=== PATIENT | male | born 1935 | race Caucasian/White ===

== ENCOUNTER 2017-02-08 22:39 | Emergency (ER) | payer MEDICARE, OTHER ==
[~2017-02-08] VITALS: Ht 180.3 cm; Wt 59.0 kg
[~2017-02-08 22:39] MED LIST: ASPI-146 PO; BUME1TAB PO; CARV3.12 PO; IPRASOL INH; LEVA500T PO; OXYC1TAB63 PO; PRED10 PO; SPIRCAP INH; VENTAER INH
[2017-02-08 22:50] VITALS: BP 126/72; PULSE 77; RESP 16; TEMP 97.8; O2SAT 97
[2017-02-08] MEDS ORDERED: FURO20TA PO (23:01)
[2017-02-08 23:25] LABS: BASOPHIL # 0.1 TH/MM3 (0-0.2); BASOPHIL % 0.7 % (0.0-2.0); EOSINOPHIL # 0.3 TH/MM3 (0-0.4); EOSINOPHIL % 3.6 % (0.0-4.0); HEMATOCRIT 40.3 % (39.0-51.0); HEMO FLAGS DIFF FINAL; LYMPH % 15.1 % (9.0-44.0); LYMPHOCYTE # 1.2 TH/MM3 (1.0-4.8); MEAN CELL VOLUME 85.9 FL (80.0-100.0); MEAN CORPUSCULAR HEMOGLOBIN 29.1 PG (27.0-34.0); MEAN CORPUSCULAR HGB CONC 33.8 % (32.0-36.0); MONO % 7.5 % (0.0-8.0); NEUT % 73.1 % (16.0-70.0); PLATELET COUNT 117 TH/MM3 (150-450); RED BLOOD COUNT 4.69 MIL/MM3 (4.50-5.90); RED CELL DISTRIBUTION WIDTH 15.5 % (11.6-17.2); WHITE BLOOD COUNT 8.2 TH/MM3 (4.0-11.0)
[2017-02-08 23:44] LABS: INTERNATIONAL NORMALIZED RATIO 1.1 RATIO; PROTHROMBIN TIME - PATIENT 11.8 SEC (9.8-11.6)
--- NOTE | 2017-02-08 23:56 | PD ---
HPI Chief Complaint: Bleeding Time Seen by Provider: 22:46 Travel History International Travel<30 days: No Contact w/Intl Traveler<30days: No Traveled to known affect area: No History of Present Illness HPI The patient is an 81 year old male who presents to the [facility] emergency department with a history of bleeding from the right scrotum that began prior to arrival after he took a hot bath. The patient reports that he was toweling off after a hot bath when he suddenly noticed that there was an area of bleeding from the right scrotum. He reports that he tried to hold pressure and stop the bleeding, however it would not stop. He reports that he is on a 325 mg aspirin daily. He denies taking any other blood thinners. The patient denies any injury to the area. He denies having any lightheaded sensation, chest pain, chest pressure, shortness of breath, or weakness associated with this. The bleeding stopped prior to arrival. The patient has a Band-Aid in place. On review of systems, the patient otherwise denies any recent fevers cough, congestion, neck pain, chest pain, worsening shortness of breath (he has a baseline level of shortness of breath related to COPD), abdominal pain, vomiting, diarrhea, urinary symptoms, or neurologic symptoms. 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 Atrial Fibrillation: Yes Heart Rhythm Problems: Yes Cardiovascular Problems: Yes Congestive Heart Failure: Yes COPD: Yes Coronary Artery Disease: Yes Diminished Hearing: No Respiratory: Yes Past Surgical History Narrative Surgical The patient's past surgical history is significant for an AICD placement, cardiac catheterization with 5-6 stents placed previously. Cardiac Surgery: Yes (PACEMAKER/ AICD) Social History Alcohol Use: No Tobacco Use: Yes (one pack per day) Substance Use: No Allergies-Medications (Allergen,Severity, Reaction): Coded Allergies: clopidogrel (Unverified Allergy, Severe, Rash, 12/21/16) Reported Meds & Prescriptions Reported Meds & Active Scripts Active Reported Furosemide 20 Mg Tab 20 Mg PO DAILY Ecotrin Regular Strength (Aspirin) 325 Mg Tabdr 325 Mg PO DAILY Review of Systems Except as stated in HPI: all other systems reviewed are Neg General / Constitutional: No: Fever Eyes: No: Visual changes HENT: No: Headaches Cardiovascular: No: Chest Pain or Discomfort Respiratory: No: Shortness of Breath Gastrointestinal: No: Abdominal Pain Genitourinary: No: Dysuria Musculoskeletal: No: Pain Skin: No Rash Neurologic: No: Weakness Psychiatric: No: Depression Endocrine: No: Polydipsia Hematologic/Lymphatic: Positive: Other (bleeding from a wound on the scrotum), No: Easy Bruising Physical Exam Narrative General: The patient is a well-developed well-nourished male in no acute distress. Head and Neck exam: Head is normocephalic atraumatic. Eyes: EOMI, pupils are equal round and reactive to light. Nose: Midline septum with pink mucous membranes Mouth: Dentition unremarkable. Moist mucus membranes. Posterior oropharynx is not erythematous. No tonsillar hypertrophy. Uvula midline. Airway patent. Neck: No palpable lymphadenopathy. No nuchal rigidity. No thyromegaly. Cardiovascular: Regular rate and rhythm without murmurs, gallops, or rubs. Lungs: Clear to auscultation bilaterally. No wheezes, rhonchi, or rales. Abdomen: Soft, without tenderness to palpation in all 4 quadrants of the abdomen. No guarding, rebound, or rigidity. Normal bowel sounds are audible. No tenderness on palpation of McBurney's point. Extremities: No clubbing, cyanosis, or edema. 2+ pulses in all 4 extremities. No calf tenderness on palpation. Back: No costovertebral angle tenderness to palpation. Neurologic Exam: Grossly nonfocal. Skin Exam: No rash noted. 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 Bleeding has been controlled. The patient has no scrotal pain or swelling. The patient has no testicle masses palpated. No hernia palpated on exam. Data Data Last Documented VS Vital Signs Date Time Temp Pulse Resp B/P (MAP) Pulse Ox O2 Delivery O2 Flow Rate FiO2 02/08/17 22:54 69 20 97 Room Air 02/08/17 22:50 97.8 126/72 (90) Orders Orders Complete Blood Count With Diff (02/08/17 23:05) Prothrombin Time / Inr (Pt) (02/08/17 23:05) Act Partial Throm Time (Ptt) (02/08/17 23:05) Iv Access Insert/Monitor (02/08/17 23:05) Ecg Monitoring (02/08/17 23:05) Labs Laboratory Tests Test 02/08/17:05 White Blood Count 8.2 TH/MM3 Red Blood Count 4.69 MIL/MM3 Hemoglobin 13.6 GM/DL Hematocrit 40.3 % Mean Corpuscular Volume 85.9 FL Mean Corpuscular Hemoglobin 29.1 PG Mean Corpuscular Hemoglobin Concent 33.8 % Red Cell Distribution Width 15.5 % Platelet Count 117 TH/MM3 Mean Platelet Volume 8.6 FL Neutrophils (%) (Auto) 73.1 % Lymphocytes (%) (Auto) 15.1 % Monocytes (%) (Auto) 7.5 % Eosinophils (%) (Auto) 3.6 % Basophils (%) (Auto) 0.7 % Neutrophils # (Auto) 6.0 TH/MM3 Lymphocytes # (Auto) 1.2 TH/MM3 Monocytes # (Auto) 0.6 TH/MM3 Eosinophils # (Auto) 0.3 TH/MM3 Basophils # (Auto) 0.1 TH/MM3 CBC Comment DIFF FINAL Differential Comment Prothrombin Time 11.8 SEC Prothromb Time International Ratio 1.1 RATIO Activated Partial Thromboplast Time 31.0 SEC MDM Medical Decision Making Medical Screen Exam Complete: Yes Emergency Medical Condition: Yes Medical Record Reviewed: Yes Differential Diagnosis Coagulopathy, versus anemia related to bleeding Narrative Course During the course of the patients emergency department visit, the patients history, examination, and differential diagnosis were reviewed with the patient. The patient had IV access obtained and blood work sent for analysis. The patient was on a ekg monitor tech with oximetry and blood pressure monitoring. A CBC and coag profile was ordered. The patient will be observed for any recurrences of bleeding. The patients laboratory studies were reviewed and remarkable for a CBC that shows a white count of 8.2, hemoglobin 13.6, platelets 117 with 73.1 neutrophils. A comparison to prior CBCs done at this facility reveals that the patient does have a history of mild thrombocytopenia, his last platelet count prior to this was 114. PT 11.8, PTT 31, INR 1.1. The patient will be discharged home. The patient was instructed that if he has a recurrence of the bleeding he should hold pressure firmly for 15 minutes until the bleeding stops. The patient is instructed to avoid rubbing the area to dry off until it completely heals. The patient is resting comfortably and feels better, is alert and in no distress. The patients results and examination findings were discussed with the patient. The repeat examination is unremarkable and benign. The history, exam, diagnostic testing, and current condition do not suggest any significant pathology to warrant further testing, continued ED treatment, admission, or surgical evaluation at this point. The vital signs have been stable. The patient does not have uncontrollable pain, intractable vomiting, or other significant symptoms. The patient's condition is stable and appropriate for discharge. The patient will pursue further outpatient evaluation with a primary care physician or other designated or consulting physician as indicated in the discharge instructions. The patient expressed understanding and was agreeable with this plan. Diagnosis Primary Impression: Vazquez hemangioma Referrals: Primary Care Physician 3 days Patient Instructions: General Instructions Med/Other Pt SpecificInfo: No Change to Meds Disposition: 01 DISCHARGE HOME Condition: Stable Subha Rajput MD Feb 08, 2017 23:55
[2017-02-09 00:03] VITALS: BP 119/77
== END 2017-02-09 00:30 | disposition home or self-care (01) ==
LOC: NEPE 22:39
DX: D18.09 Hemangioma of other sites (principal); F17.200 Nicotine dependence, unspecified, uncomplicated; I48.91 Unspecified atrial fibrillation; Z79.82 Long term (current) use of aspirin
CPT/HCPCS: 85025; 85610; 85730; 99283